=== PATIENT | female | born 1955 | race Caucasian/White ===

== ENCOUNTER 2018-07-09 21:23 | Emergency (ER) | payer MEDICAID ==
[~2018-07-09] VITALS: Ht 170.2 cm; Wt 56.0 kg
[2018-07-09 21:35] VITALS: BP 143/92
[2018-07-09 22:07] LABS: CLARITY,URINE CLOUDY (Clear); COLOR,URINE YELLOW (Yellow); GLUCOSE, URINE NEGATIVE (Neg); KETONES,URINE >=80 mg/dl (Neg); LEUKOCYTE ESTERASE ,URINE MODERATE (Neg); NITRITES, URINE NEGATIVE (Neg); OCCULT BLOOD,URINE MODERATE (Neg); PROTEIN,URINE TRACE mg/dl (Neg); UROBILINOGEN,URINE 0.2 E.U/dL (0.2-1.0)
[2018-07-09 22:08] LABS: UA COLLECTION TYPE CLN CATCH MIDSTREAM
[2018-07-09 22:10] LABS: URINE HCG NEGATIVE (NEG)
[2018-07-09 22:21] LABS: WBC,URINE 50-100 /HPF (0-4)
[2018-07-09 22:23] LABS: BACTERIA,URINE FEW /HPF (Neg); MUCUS STRANDS FEW /LPF (Neg); SQUAMOUS EPITHELIAL CELL,UR FEW /LPF (FEW); WBC CLUMPS,URINE FEW /HPF (NEGATIVE)
[2018-07-09] MEDS ORDERED: CEPH250T PO (22:51)
--- NOTE | 2018-07-09 23:03 | NUR ---
PT SEEN AND DC'D BY PROVIDER
== END 2018-07-09 23:03 | disposition home or self-care (01) ==
LOC: ER 21:25
DX: N39.0 Urinary tract infection, site not specified (principal)
CPT/HCPCS: 81001; 81025; 87077; 87088; 87186; 99283